=== PATIENT | male | born 1960 | race Asian ===

== ENCOUNTER 2021-01-28 03:10 | Emergency (ER) | payer MEDICAID ==
[~2021-01-28] VITALS: Ht 170.2 cm; Wt 72.6 kg
[2021-01-28 03:15] VITALS: BP 153/93
--- NOTE | 2021-01-28 03:15 | NUR ---
TO BED AMBULATORY
[2021-01-28] MEDS ORDERED: ONDANSETRON 4 MG ODT PO ONE (03:40)
[2021-01-28] MEDS ORDERED: MORPHINE SULFATE 4 MG/ML SYR IM ONE (03:40)
--- NOTE | 2021-01-28 03:43 | NUR ---
ERMD AT BEDSIDE ASSESSING PATIENT USING TELESALES REPRESENTATIVE SERVICES. TELESALES REPRESENTATIVE NAME:RIGO TELESALES REPRESENTATIVE ID:[id number]
--- NOTE | 2021-01-28 03:46 | NUR ---
ERMD AT BEDSIDE FOR MEDICAL EVALUATION.
--- NOTE | 2021-01-28 04:00 | NUR ---
60 YOM W CO HEADACHE X3 DAYS THAT "FEELS HEAVY," IS CONSTANT BUT WORSENS X3 HOURS OR WITH STRESS, HEADACHE CURRENTLY 6 OUT OF 10. DENIES TRAUMA TO HEAD. PATIENT REPORTS DIZZYNESS AND NAUSEA X1 DAY. DENIES LOC. PATIENT IS AOX4. BREATHING EVEN AND ULABORED. NO ACUTE DISTRESS NOTED. PATIENT LAYING IN BED LOCKED INLOWEST POSITION, HOB ELEVATED, X1 SIDE RAIL UP. BURMESE SPEAKING. BURMESE TOOLING SPECIALIST USED, TOOLING SPECIALIST NAME DORYS, TOOLING SPECIALIST ID: [id number]. NO PMH NKA
--- NOTE | 2021-01-28 04:11 | NUR ---
EKG PERFORMED AT BEDSIDE. EKG READS SINUS RHYTHM @ 61
--- NOTE | 2021-01-28 04:15 | NUR ---
PATIENT AMBULATED TO BATHROOM, W STEADY GATE.
--- NOTE | 2021-01-28 04:17 | NUR ---
PT TAKEN TO RADIOLOGY VIA W/C.
--- NOTE | 2021-01-28 04:23 | NUR ---
PT RETURNED FROM RADIOLOGY VIA W/C
--- NOTE | 2021-01-28 04:35 | NUR ---
BLOODS LABS COLLECTED AND WALKED TO LAB.
[2021-01-28 05:07] LABS: BASOPHILS # (AUTO) 0.1 K/uL (0.00-0.22); BASOPHILS % (AUTO) 0.9 % (0.0-2.0); EOSINOPHILS # (AUTO) 0.1 K/uL (0-0.4); EOSINOPHILS % (AUTO) 1.5 % (0.0-4.0); HEMATOCRIT 44.9 % (36-52); HEMOGLOBIN 15.4 g/dL (12.0-18.0); LYMPHOCYTES # (AUTO) 0.8 K/uL (2.0-11.5); LYMPHOCYTES % (AUTO) 11.9 % (20.5-51.1); MEAN CORPUSCULAR HEMOGLOBIN 31 pg (27-31); MEAN CORPUSCULAR HGB CONC 34 g/dL (33-37); MEAN CORPUSCULAR VOLUME 89.9 fL (80-94); MONOCYTES # (AUTO) 0.5 K/uL (0.8-1.0); NEUTROPHILS # (AUTO) 5.3 K/uL (1.8-7.7); NEUTROPHILS % (AUTO) 78.7 % (42.2-75.2); PLATELET COUNT (AUTO) 321 K/uL (140-450); RED BLOOD CELL COUNT(AUTO) 4.99 MIL/uL (4.20-6.10); RED CELL DISTRIBUTION WIDTH 13.5 % (11.6-13.7); WHITE BLOOD COUNT (AUTO) 6.7 K/uL (4.8-10.8)
[2021-01-28] MEDS: ONDANSETRON 4 MG/2 ML VIAL IVP ONE (05:22)
[2021-01-28] MEDS: MORPHINE SULFATE 2 MG/ML SYR IVP ONE (05:24)
[2021-01-28] MEDS: NACL 0.9% 1,000 ML IV ONE (05:25)
[2021-01-28 05:28] LABS: ANION GAP 13.5 (8-16); CARBON DIOXIDE 26.4 mmol/L (21-32); POTASSIUM 3.9 mmol/L (3.5-5.1); TOTAL BILIRUBIN 0.9 mg/dL (0.0-1.0)
--- NOTE | 2021-01-28 05:57 | NUR ---
PATIENT LAYING IN BED, BREATHING EVEN AND UNLABORED. DAUGHTER AT BEDSIDE.
[2021-01-28 06:53] VITALS: BP 126/79
--- NOTE | 2021-01-28 06:53 | NUR ---
Patient discharged with v/s stable. Written and verbal after care instructions given and explained. Patient verbalized understanding. Ambulatory with steady gait. All questions addressed prior to discharge. Advised to follow up with PMD.
== END 2021-01-28 06:53 | disposition home or self-care (01) ==
LOC: MED 03:10
DX: G43.909 Migraine, unspecified, not intractable, without status migrainosus (principal)
CPT/HCPCS: 36415; 70450; 80053; 84484; 85025; 93005; 96361; 96374; 96375; 99285; J2270; J2405; J7030

== ENCOUNTER 2022-04-17 20:05 | Emergency (ER) | payer MEDICAID, OTHER ==
[~2022-04-17] VITALS: Ht 177.8 cm; Wt 72.6 kg
[2022-04-17 20:18] VITALS: BP 136/77
--- NOTE | 2022-04-17 20:30 | NUR ---
TO LOBBY FOLLOWING TRIAGE. TITI SWAB OBTAINED AND SENT TO LAB
[2022-04-17] MEDS ORDERED: PRED20TA5 PO (22:06)
[2022-04-17] MEDS ORDERED: NIRM1TAB PO (22:06)
[2022-04-17] MEDS ORDERED: IBUP-2213 PO (22:06)
[2022-04-17 22:15] VITALS: BP 136/77
--- NOTE | 2022-04-17 22:15 | NUR ---
Patient discharged with v/s stable. Written and verbal after care instructions given and explained. Patient alert, oriented and verbalized understanding of instructions. Ambulatory with steady gait. All questions addressed prior to discharge. ID band removed. Patient advised to follow up with PMD. Rx of RITONAVIR & PREDNISONE given. Patient educated on indication of medication including possible reaction and side effects. Opportunity to ask questions provided and answered.
== END 2022-04-17 22:15 | disposition home or self-care (01) ==
LOC: MED 20:05
DX: U07.1 COVID-19 (principal); J02.9 Acute pharyngitis, unspecified; R50.9 Fever, unspecified; R05.9 Cough, unspecified
CPT/HCPCS: 71045; 99284